=== PATIENT | male | born 1945 | race Caucasian/White ===

== ENCOUNTER 2017-03-26 07:47 | Emergency (ER) | payer OTHER, MEDICARE ==
[~2017-03-26] VITALS: Ht 177.8 cm; Wt 83.9 kg
[~2017-03-26 07:47] MED LIST: ALLOPURINOL100 MG PO; ASPIRIN CHILDRE81 MG PO; CLONIDINE HCL0.1 MG PO; COZAAR 50MG TAB50 MG PO; ESCITALOPRAM10 MG PO; FEOSOL45 MG PO; FISH OIL500 MG; FUROSEMIDE40 MG PO; HYDRALAZINE HCL25 MG PO; LASIX20 MG PO; LISINOPRIL10 MG PO; LOPRESSOR 25MG25 MG PO; LOPRESSOR50 MG PO; METOPROLOL TART25 M1 PO; MULTI VITAMINS1 TAB PO; NATURAL IRON65 MG PO; NORVASC 10MG10 MG PO; NORVASC5 M1 PO; OMEPRAZOLE40 MG PO; PRINIVIL 5MG5 MG PO; PROS5 PO; PROTONIX 40MG T40 MG PO; RENAL CAPS1 SGL PO; SODIUM BICARBO648 MG PO; TAMSULOSIN HYD0.4 MG PO; TERAZOSIN5 MG PO; TOPROL XL 100100 MG PO; TYLENOL WITH C1 EACH PO; ZOCOR 40MG TAB40 MG PO; [UNRECOGNIZED DRUG - CODE] SC
--- NOTE | 2017-03-26 08:20 | ED UPPER/LOWER EXTREMITY COMPL ---
History of Present Illness General Chief Complaint: Hand or Wrist Injury Stated Complaint: L WRIST INJURY Source: patient, family Exam Limitations: no limitations Vital Signs & Intake/Output Vital Signs & Intake/Output Vital Signs Date Time Temp Pulse Resp B/P B/P Pulse O2 O2 Flow FiO2 Mean Ox Delivery Rate 03/26 0938 98.6 76 18 156/84 98 Room Air 03/26 0758 97.4 113 16 184/90 68 Room Air Allergies Coded Allergies: hydroxychloroquine (From PLAQUENIL) (RASH 01/29/16) Reconcile Medications Amlodipine Besylate (Norvasc) 5 MG TABLET 1 TAB PO DAILY HIGH BLOOD PRESSURE (Reported) Aspirin (Children's Aspirin) 81 MG TAB.CHEW 1 TAB PO DAILY HEART HEALTH ( Reported) Clonidine HCl 0.1 MG TABLET 1 TAB PO QPM HIGH BLOOD PRESSURE (Reported) Finasteride (Propecia) 5 MG TAB 5 MG PO DAILY UNKNOWN (Reported) Furosemide 40 MG TAB 1 TAB PO DAILY CHF Iron (Feosol) 45 MG TAB 1 TAB PO TID Anemia Metoprolol Tartrate 25 MG TABLET 1 TAB PO BID HIGH BLOOD PRESSURE (Reported) Multivitamin (One Daily Multivitamin) (Unknown Strength) TABLET 1 TAB PO VITAMIN SUPPLEMENT (Reported) Omeprazole 40 MG CAPSULE.DR 1 CAP PO DAILY ACID REFLUX TAKE 2 TAB DAILY FOR 2 WEEKS THEN 1 TAB DAILY Oxycodone HCl/Acetaminophen (Percocet 5-325 MG Tablet) 5 MG-325 MG TABLET 1 TAB PO Q4-6 PRN PAIN SALMON OIL/OMEGA-3 FATTY ACIDS (Fish Oil 500 MG Softgel) (Unknown Strength) CAPSULE 1 TAB DAILY SUPPLEMENT (Reported) Simvastatin (Zocor 40MG Tab) 40 MG TABLET 1 TAB PO QPM hld (Reported) Sodium Bicarbonate 648 MG TAB 650 MG PO BID KIDNEY FAILURE (Reported) TAMSULOSIN HCL (Tamsulosin Hydrochloride) 0.4 MG CAP.ER.24H 0.4 MG PO DAILY UNKNOWN (Reported) Tylenol With Codeine (Tylenol With Codeine #3 Tablet) 300 MG-30 MG TABLET 1 TAB PO Q4-6 PRN PRN PAIN Triage Note: PT STATES HE BROKE HIS LEFT WRIST. PT STATES HE FELL LAST EVENING WHILE TRYING TO GET UP AND ANSWER THE PHONE. PT ARRIVES WITH COCKUP SPLINT TO WRIST. Triage Nurses Notes Reviewed? yes Onset: Abrupt Duration: constant Timing: recent history Severity: severe Method of Injury: fall No Modifying Factors: none HPI: Patient is a 71-year-old male who presents emergency room saying that yesterday evening patient was in a seated position where he heard the phone ring got up immediately and became mildly dizzy and fell brace his fall with his left outstretched hand resulting in acute onset of 7 at 10 left wrist pain. Patient is right arm dominant. Denies any head strike neck pain back pain and shoulder pain or elbow pain. Skin is intact. No medications prior to arrival. (TONE ACOSTA) Past History Travel History Traveled to [facility] past 21 day No Medical History Any Pertinent Medical History? 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 Other Medical Hx: peripheral vascular disease History of MRSA: No History of VRE: No History of CDIFF: No Surgical History Surgical History: CABG, colon resection, cataract removal, L antecubital AVF PTCA Takedown of a colostomy 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 No (TONE ACOSTA) Review of Systems Review of Systems Constitutional: Reports: no symptoms. EENTM: Reports: no symptoms. Respiratory: Reports: no symptoms. Cardiovascular: Reports: no symptoms. Gastrointestinal/Abdominal: Reports: no symptoms. Genitourinary: Reports: no symptoms. Musculoskeletal: Reports: see HPI, joint pain, joint swelling. Skin: Reports: no symptoms. Neurological/Psychological: Reports: no symptoms. Hematologic/Endocrine: Reports: no symptoms. Immunological: Reports: no symptoms. All Other Systems: Reviewed and Negative (TONE ACOSTA) Physical Exam Physical Exam General Appearance: no apparent distress, alert, comfortable Neurologic/Tendon: normal sensation, normal motor functions, normal tendon functions, responds to pain, no evidence tendon injury, no pulse deficit Skin: intact, normal color, warm/dry Comments: Well-developed well-nourished no apparent distress. HEENT: Atraumatic, extraocular motion intact Neck: Supple, no lymphadenopathy Back: Nontender Respiratory: No respiratory distress Extremities: Left elbow nontender full active range of motion Left wrist noted gross deformity swelling and decreased active range of motion and point tenderness Radial pulse +2 Left hand nontender normal inspection Left upper extremity dermatomes intact Neuro: Alert and oriented x3 Psych: Mood affect normal, normal memory normal judgment. (TONE ACOSTA) Progress Differential Diagnosis: arterial insufficiency, compartment syndrome, contusion, dislocation, DVT, fracture, gout, septic arthritis, sprain, tendon injury Plan of Care: Orders Procedure Date/time Status Durable Medical Equipment 03/26 915 Active Patient has noted left distal radial fracture Patient was neurovascularly intact Patient had normal steady gait I performed a hematoma block and reduction in which using sterile technique a Betadine was applied and using 1% lidocaine 5 cc of interdermal local anesthesia using a 30-gauge needle then using a 22-gauge needle I performed a hematoma block using 10 mL of 1% lidocaine After reduction was performed I THEN APPLIED ORTHOPEDIC glass to patient's left forearm using a sugar tong splint with web roll and Ramirez wrap. Shoulder immobilizer was then placed pre-and post-neurovascular was intact. I strongly advised patient to follow up with orthopedic doctor and he will comply. Upon discharge patient looks well no apparent distress I also stressed with patient before standing up after prolonged sitting to wait until he becomes less symptomatic from his dizziness to avoid falls in the future. Patient has been ambulating in the emergency room sitting and standing and is asymptomatic. Patient states that he's had symptoms like this in the past due to standing up abruptly (TONE ACOSTA) Diagnostic Imaging: Viewed by Me: Radiology Read. Radiology Impression: acute abnormality, fracture Comments: PATIENT: J[place] ARANA PRESENT AGE: 71 PATIENT ACCOUNT NO: [id number] : 43 LOCATION: [facility] ORDERING PHYSICIAN: TONE ZHANG SERVICE DATE: 03/26/17 EXAM TYPE: RAD - XRY-WRIST COMPLETE-LEFT EXAMINATION: XR WRIST, LEFT CLINICAL INFORMATION: Status post reduction. COMPARISON: Left wrist radiographs from earlier the same day. TECHNIQUE: AP, lateral, and oblique views of the left wrist. FINDINGS: Splint material overlies the bony structures. A comminuted impacted fracture of the distal radial metaphysis is redemonstrated. On the lateral view the previously noted mild dorsal angulation may be slightly improved. IMPRESSION: Status post reduction and splinting of a distal radial metaphyseal fracture. PATIENT: J[place] ARANA PRESENT AGE: 71 PATIENT ACCOUNT NO: [id number] : 43 LOCATION: ER ORDERING PHYSICIAN: TONE ZHANG SERVICE DATE: 03/26/17 EXAM TYPE: RAD - XRY-WRIST COMPLETE-LEFT EXAMINATION: XR WRIST, LEFT CLINICAL INFORMATION: Pain and swelling after fall COMPARISON: 10/31/2016 TECHNIQUE: AP, lateral, and oblique views of the left wrist. FINDINGS: There is an impacted fracture across the distal radial metaphysis. There is slight dorsal angulation of the distal fracture fragment. The bones are diffusely demineralized. There is minor irregularity at the ulnar styloid suggesting an additional tiny evulsion fracture. There are degenerative changes at the STT joint. No additional fractures are visualized. There is regional soft tissue swelling. IMPRESSION: Impacted Colles' type distal radial fracture. Probable tiny associated avulsion fracture of the ulnar styloid. Diffuse bony demineralization. DICTATED BY: TOM PRINCE MD DATE/TIME DICTATED:03/26/17851 SENIOR NET DEVELOPER ARCHITECT:LEIA DATE/TIME TRANSCRIBED:03/26/17851 PATIENT: JAMA[place] ARANA PRESENT AGE: 71 PATIENT ACCOUNT NO: [id number] : 43 LOCATION: [facility] ORDERING PHYSICIAN: TONE ZHANG SERVICE DATE: 03/26/17 EXAM TYPE: RAD - XRY-WRIST COMPLETE-LEFT EXAMINATION: XR WRIST, LEFT CLINICAL INFORMATION: Status post reduction. COMPARISON: Left wrist radiographs from earlier the same day. TECHNIQUE: AP, lateral, and oblique views of the left wrist. FINDINGS: Splint material overlies the bony structures. A comminuted impacted fracture of the distal radial metaphysis is redemonstrated. On the lateral view the previously noted mild dorsal angulation may be slightly improved. IMPRESSION: Status post reduction and splinting of a distal radial metaphyseal fracture. DICTATED BY: TOM PRINCE MD DATE/TIME DICTATED:05/02/17 / 0947 SENIOR NET DEVELOPER ARCHITECT:RAD.DON DATE/TIME TRANSCRIBED:03/26/17946 (TONE ACOSTA) Departure Departure Disposition: HOME OR SELF CARE Condition: Stable Clinical Impression Primary Impression: Fracture of left distal radius Referrals: VI MORA,PA Hunter (PCP/Family) NADIA MORA,JET Julio Additional Instructions: As discussed the splint and shoulder immobilizer that has been placed on YOU, keep this on at all times for support and stability until you follow up with the orthopedic doctor. Today please call orthopedic Dr. ZUNIGA'S office to be seen in the next 2 days for further evaluation treatment. Begin the prescription of Percocet for breakthrough pain relief. If symptoms worsen return to emergency room. Prescription is waiting at [facility]. Departure Forms: Customer Survey General Discharge Information Prescriptions: Current Visit Scripts Oxycodone HCl/Acetaminophen (Percocet 5-325 MG Tablet) 1 TAB PO Q4-6 PRN PAIN #15 TAB (TONE ACOSTA) PA/MANAGER OF PROJECT MANAGEMENT Co-Sign Statement Statement: ED Attending supervision documentation- x I saw and evaluated the patient. I have also reviewed all the pertinent lab results and diagnostic results. I agree with the findings and the plan of care as documented in the PA's/MANAGER OF PROJECT MANAGEMENT's documentation. [] I have reviewed the ED Record and agree with the PA's/MANAGER OF PROJECT MANAGEMENT's documentation. [] Additions or exceptions (if any) to the PAs/MANAGER OF PROJECT MANAGEMENT's note and plan are summarized below: [] (KRYSTAL MORA,ZOE)
--- NOTE | 2017-03-26 09:00 | RADIOLOGY REPORT ---
EXAMINATION: XR WRIST, LEFT CLINICAL INFORMATION: Pain and swelling after fall COMPARISON: 10/31/2016 TECHNIQUE: AP, lateral, and oblique views of the left wrist. FINDINGS: There is an impacted fracture across the distal radial metaphysis. There is slight dorsal angulation of the distal fracture fragment. The bones are diffusely demineralized. There is minor irregularity at the ulnar styloid suggesting an additional tiny evulsion fracture. There are degenerative changes at the STT joint. No additional fractures are visualized. There is regional soft tissue swelling. IMPRESSION: Impacted Colles' type distal radial fracture. Probable tiny associated avulsion fracture of the ulnar styloid. Diffuse bony demineralization.
[2017-03-26] MEDS ORDERED: PERCOCET 5-3251 EACH PO (09:19)
[2017-03-26 09:38] VITALS: BP 156/84
--- NOTE | 2017-03-26 09:54 | RADIOLOGY REPORT ---
EXAMINATION: XR WRIST, LEFT CLINICAL INFORMATION: Status post reduction. COMPARISON: Left wrist radiographs from earlier the same day. TECHNIQUE: AP, lateral, and oblique views of the left wrist. FINDINGS: Splint material overlies the bony structures. A comminuted impacted fracture of the distal radial metaphysis is redemonstrated. On the lateral view the previously noted mild dorsal angulation may be slightly improved. IMPRESSION: Status post reduction and splinting of a distal radial metaphyseal fracture.
== END 2017-03-26 09:38 ==
LOC: ERH 07:47
DX: S52.502A Unspecified fracture of the lower end of left radius, initial encounter for closed fracture (principal); W19.XXXA Unspecified fall, initial encounter; Y92.9 Unspecified place or not applicable; Y93.9 Activity, unspecified
CPT/HCPCS: 73110-LT